=== PATIENT | male | born 1995 | race Caucasian/White ===

== ENCOUNTER 2024-10-15 16:27 | Emergency (ER) | payer MEDICAID ==
[~2024-10-15] VITALS: Ht 167.6 cm; Wt 69.0 kg
[2024-10-15 16:29] VITALS: O2SAT 99
[2024-10-15] MEDS: LIDOCAINE HCL/PF 1% 10 MG/ML 5ML VIAL INFIL ONE (17:41)
[2024-10-15] MEDS ORDERED: LIDO-53 TP (18:29)
[2024-10-15] MEDS ORDERED: NAPR-1176 MT (18:29)
[2024-10-15 19:11] VITALS: BP 122/80; PULSE 90; RESP 18; TEMP 37.1; O2SAT 99
== END 2024-10-15 19:16 | disposition home or self-care (01) ==
LOC: ER 16:27
DX: S52.612A Displaced fracture of left ulna styloid process, initial encounter for closed fracture (principal); S52.592A Other fractures of lower end of left radius, initial encounter for closed fracture; Z79.1 Long term (current) use of non-steroidal anti-inflammatories (NSAID); V00.131A Fall from skateboard, initial encounter; Y93.51 Activity, roller skating (inline) and skateboarding; Y92.89 Other specified places as the place of occurrence of the external cause; Y99.8 Other external cause status
CPT/HCPCS: 25605; 73090; 73110; 73130; 99284; 96372; J2003; A6449; 99285